=== PATIENT | female | born 1990 | race Two or more races ===

== ENCOUNTER 2020-06-01 19:05 | Emergency (ER) | payer OTHER ==
[~2020-06-01] VITALS: Ht 175.3 cm; Wt 99.8 kg
[2020-06-02] MEDS ORDERED: VITAMIN C WIT1000 MG PO (00:25)
[2020-06-02] MEDS ORDERED: VITAMIN D3-ALO1 EACH PO (00:25)
[2020-06-02] MEDS ORDERED: ACETAMINOPHEN650 M2 PO (00:25)
[2020-06-02] MEDS ORDERED: PEPCID AC20 MG PO (00:25)
[2020-06-02] MEDS ORDERED: GUAIFENESIN200 MG PO (00:27)
== END 2020-06-02 00:54 | disposition home or self-care (01) ==
LOC: ER 19:05
DX: B34.9 Viral infection, unspecified (principal); K52.89 Other specified noninfective gastroenteritis and colitis; Z03.818 Encounter for observation for suspected exposure to other biological agents ruled out; R06.02 Shortness of breath